=== PATIENT | female | born 2000 | race Caucasian/White ===

== ENCOUNTER 2021-06-11 21:16 | Emergency (ER) | payer OTHER, SELFPAY ==
[2021-06-11 21:17] VITALS: BP 134/91; PULSE 88; RESP 16; TEMP 36.4; O2SAT 97; BMI 25.7
--- NOTE | 2021-06-11 22:08 | CT_ITS ---
STUDY: CT CERVICAL SPINE WITHOUT CONTRAST REASON FOR EXAM: Female, 21 years old. Trauma, pain RADIATION DOSAGE (If Supplied By Facility): CTDIvol = ( 17.40 ) mGy, DLP = ( 337.75 ) mGycm TECHNIQUE: High resolution transaxial imaging was performed without contrast material. Sagittal and coronal images were reconstructed. Individualized dose optimization techniques were used for this CT. COMPARISON: None FINDINGS: Normal craniovertebral junction. Normal anterior atlantoaxial articulation. Normal odontoid process. Normal cervical lordosis. Normal vertebral bodies and posterior osseous elements. Tiny ossific body along the anterior C4 superior endplate is probably an enthesophyte. No significant spinal canal or neural foraminal stenosis. Normal visualized soft tissue structures. CT/Spine Cervical without Contras IMPRESSION: No acute fracture or dislocation of the cervical spine. Electronically Signed: Fede Pierre MD at 22:45 EDT Tel , Service support ,
--- NOTE | 2021-06-11 22:09 | EDS_ITS ---
HPI History of Present Illness Chief Complaint: Head Injury Informant: patient Narrative Narrative: Patient presents with soreness on her neck after injury in a volleyball game. She was running after a ball. She had to tripod holding her camera. She then ran into a wall. She ran into this kind of on her left side. She had some soreness on the left side of her neck. She had localized tingling transiently. But this tingling did not radiate anywhere except locally. Never had tingling numbness or loss of function in arms or legs. She does not have a headache. She never lost consciousness. She has no blood thinners. Nothing specifically makes symptoms better or worse. C-collar was applied when she came in. Patient has no chronic medical conditions No routine medications No allergies No surgeries Healthy, goes to college, non-smoker PFSH PFS Allergy/AdvReac Type Severity Reaction Status Date / Time No Known Allergies Allergy Verified 06/11/21 21:19 Social History Smoking Status: Never smoker ROS ROS ED Constitutional Constitutional ED: Denies fever(s) Eyes Eyes: Denies change in vision ENT ENT ED: Denies rhinorrhea Cardiovascular Cardiovascular: Denies chest pain Respiratory/Chest Respiratory/Chest: Denies cough or dyspnea Gastrointestinal Gastrointestinal: Denies nausea or vomiting Musculoskeletal Musculoskeletal: Reports neck pain; Denies arthralgias, back pain or myalgias Integumentary Denies abscess, Abrasions or rash Neurologic Neurologic: Reports paresthesias and other Details: Patient had local tingling at the base left side of her neck but this did not radiate anywhere else. See history of present illness. ; Denies headache(s) or weakness Psychiatric Psychiatric: Denies anxiety Hematologic/Lymphatic Hematologic/Lymphatic: Denies easy bleeding or easy bruising Allergic/Immunologic Allergic/Immunologic ED: Denies mouth swelling EXAM Physical Exam Const Vital Signs: 06/11/21 21:17 Temperature 97.6 F L Temperature Source Temporal Pulse Rate 88 Respiratory Rate 16 Blood Pressure 134/91 H Blood Pressure Mean 105 Pulse Ox 97 Oxygen Delivery Method Room Air Positive well nourished and well developed Constitutional Narrative: Patient is sitting quietly on bed. She is using her phone with both hands without difficulty. General Appearance ED: well developed and NAD HEENT HEENT Narrative: No sign of external head trauma. atraumatic; Negative for trauma or tenderness Eyes PERRL and EOMs intact bilaterally Neck Neck Narrative: C-collar is on. She does have tenderness the lower third of the neck mostly on the left. Because of her report of injury, feeling a pop sensat ion and local tingling and discomfort we did not put her neck through range of motion. Resp normal respiratory effort and clear to auscultation bilaterally Cardio Rate: regular rate GI normal to inspection, nondistended, normoactive bowel sounds and non-tender Palpation: soft Back/Spine normal to inspection and no thoracic nor lumbar tenderness General Back: Negative for CVA tenderness Extremity normal to inspection and full ROM General Extremety ED: Negative for deformity, edema or tenderness General Extremity: Negative for deformity or edema Neuro oriented x3 Neuro Narrative: Patient has normal peripheral strength and sensation in both upper and lower extremities. Sensorium / Orientation: alert Sensory Exam: other Psych mental status grossly normal Skin no rashes or lesions noted MDM MDM MDM Narrative Medical decision making narrative: CT shows no acute fracture. Patient actually feels better out of the collar. No neurologic symptoms. She will go home with rest, ice [id number] nonsteroidals or Tylenol. Slowly return to activity after symptoms resolved. Return with any numbness tingling weakness bowel or bladder dysfunction or any other concerns. Radiography Diagnostic Testing: Radiology Impression Cervical Spine CT 06/11/21 22:08 IMPRESSION: No acute fracture or dislocation of the cervical spine. Electronically Signed: Fede Pierre MD at 22:45 EDT Tel , Service support , Discharge Plan Triage Chief Complaint: Head Injury Other Complaint: Other, Pain/Inj ED Provider: [facility] Dx/Rx/DC Orders Clinical Impression: Injury while playing volleyball, Cervical strain Instructions: ED Neck Sprain or Strain Primary Care Provider: Deangelo Garrido,Out of Referrals: Deangelo Garrido,Out of [Primary Care Provider] - Activity Restrictions/Additional Instructions: Follow-up with your physician if not improved in the next few days. Disposition Disposition: Home, Self Care
== END 2021-06-11 23:09 | disposition home or self-care (01) ==
PROVIDERS: Emergency Provider Emergency Medicine
DX: S16.1XXA Strain of muscle, fascia and tendon at neck level, initial encounter (principal); X58.XXXA Exposure to other specified factors, initial encounter; Y93.68 Activity, volleyball (beach) (court); Y92.318 Other athletic court as the place of occurrence of the external cause; Y99.8 Other external cause status
CPT/HCPCS: 72125; 99282